=== PATIENT | male | born 1985 | race Caucasian/White ===

== ENCOUNTER 2018-05-02 23:14 | Emergency (ER) | payer MEDICAID, OTHER ==
[~2018-05-02] VITALS: Ht 182.9 cm; Wt 88.0 kg
[2018-05-02 23:24] VITALS: BP 127/67
[2018-05-02] MEDS ORDERED: CEPH500C5 PO (23:33)
== END 2018-05-02 23:40 | disposition home or self-care (01) ==
LOC: ER 23:15
DX: L03.012 Cellulitis of left finger (principal); F17.200 Nicotine dependence, unspecified, uncomplicated; F12.10 Cannabis abuse, uncomplicated; Z88.8 Allergy status to other drugs, medicaments and biological substances; Z79.899 Other long term (current) drug therapy
CPT/HCPCS: 99283